=== PATIENT | female | born 1995 | race Two or more races ===

== ENCOUNTER 2017-03-23 00:05 | Emergency (ER) | payer MEDICAID ==
[~2017-03-23] VITALS: Ht 160 cm; Wt 59.3 kg
[2017-03-23 01:00] LABS: ASPARTATE AMINO TRANSFERASE 14 U/L (15-37); BLOOD UREA NITROGEN 7 mg/dL (7-18)
[2017-03-23 01:40] VITALS: BP 102/59
== END 2017-03-23 02:33 | disposition home or self-care (01) ==
LOC: ED 01:54
DX: O41.02X0 Oligohydramnios, second trimester, not applicable or unspecified (principal); O26.892 Other specified pregnancy related conditions, second trimester; M54.5 Low back pain; Z3A.18 18 weeks gestation of pregnancy
CPT/HCPCS: 36415; 76805; 80053; 81003; 84702; 85025; 99285